=== PATIENT | female | born 1990 | race African-American/Black ===

== ENCOUNTER → 2017-05-14 | Outpatient (CLI) | payer BC ==
[~2017-05-14] MED LIST: FRRS300 PO; PRENTAB26 PO
== END | disposition home or self-care (01) ==
LOC: C.PAPS 16:40
PROVIDERS: ATTEND Obstetrics & Gynecology
DX: O99.89 Other specified diseases and conditions complicating pregnancy, childbirth and the puerperium (principal); Z3A.00 Weeks of gestation of pregnancy not specified

== ENCOUNTER → 2017-05-14 | Outpatient (CLI) | payer BC ==
[2017-05-14 13:40] LABS: URINE APPEARANCE CLEAR (CLEAR); URINE BILIRUBIN NEG (NEG); URINE COLOR YELLOW; URINE EPITHELIAL CELL AUTO >30 /lpf (0-5); URINE NITRITE NEG (NEG); URINE PH >= 9.0 (4.5-7.5); URINE SPECIFIC GRAVITY 1.025 (1.000-1.030); UROBILINOGEN NEG (NEG)
[2017-05-14 13:43] LABS: MANUAL MICROSCOPIC REQUIRED? NO; REVIEW REQ? NO
[2017-05-14 15:06] LABS: BASO % 0.1 %; BASO ABS # 0.01 K/uL (0-0.2); COMPLETE YES; EOS % 1.4 %; HEMATOCRIT 36.3 % (37-47); IG% 0.2 %; LYMPH ABS # 2.01 K/uL (1.2-3.4); MEAN CELL VOLUME 81.6 fL (80-100); MEAN CORPUSCULAR HEMOGLOBIN 26.5 pg (25-34); MEAN CORPUSCULAR HGB CONC 32.5 g/dl (32-36); MEAN PLATELET VOLUME 10.3 fL (7.4-10.4); MONO % 6.5 %; NEUT % 69.8 %; PLATELET COUNT 206 K/uL (130-400); RED BLOOD COUNT 4.45 M/uL (4.2-5.4); WHITE BLOOD COUNT 9.12 K/uL (4.8-10.8)
[2017-05-17 00:09] LABS: CHLAMYDIA TRACH RNA*** NOT DETECTED (NOT DETECTED); GC (NEIS GONORRHOEAE)RNA** NOT DETECTED (NOT DETECTED)
== END | disposition home or self-care (01) ==
LOC: C.LAB1850 11:38
PROVIDERS: ATTEND Obstetrics & Gynecology
DX: Z34.81 Encounter for supervision of other normal pregnancy, first trimester (principal)

== ENCOUNTER → 2017-09-19 | Outpatient (CLI) | payer OTHER ==
[2017-09-19 13:06] LABS: HEMATOCRIT 32.7 % (37-47)
== END | disposition home or self-care (01) ==
LOC: C.LAB1850 11:00
PROVIDERS: ATTEND Obstetrics & Gynecology
DX: Z34.82 Encounter for supervision of other normal pregnancy, second trimester (principal)

== ENCOUNTER → 2017-11-13 | Outpatient (CLI) | payer OTHER | END | disposition home or self-care (01) | LOC: C.LABSPEC 15:25 | PROVIDERS: ATTEND Obstetrics & Gynecology | DX: O24.414 Gestational diabetes mellitus in pregnancy, insulin controlled (principal); Z3A.00 Weeks of gestation of pregnancy not specified ==

== ENCOUNTER → 2018-01-21 | Outpatient (CLI) | payer OTHER ==
[~2018-01-21] MED LIST changes: +MTR600X PO; +OXYC-57 PO
--- NOTE | 2018-01-22 07:30 | MAMMOGRAPHY REPORT ---
ULTRASOUND OF RIGHT BREAST: 01/21/2018 CLINICAL HISTORY: 27-year-old woman presents with a one-month history of a palpable lump in the 6:00 right breast. She is currently lactating and has a 1-month-old baby. She reports no change in size si nce she first noticed the lump. No blood-tinged milk. No skin changes overlying the palpable lump. No family history of breast cancer. COMPARISON: No prior exams were available for comparison. FINDINGS: The patient pointed out her lump in the 6:00 right breast, 2 cm from the nipple. There is a discrete firm nodular lump noted on physical exam that measures approximately 8 mm targeted ultraso und performed directly over this lump demonstrates tissue with evidence of lactational change. No hopkins spicious solid or cystic mass identified. No drainable fluid collection or focal skin thickening. IMPRESSION: ACR-BI-RADS CATEGORY 3: PROBABLY BENIGN There is no targeted sonographic evidence of malignancy or other suspicious abnormality to explain th e palpable lump in the 6:00 right breast initially identified by the patient. Continued clinical mon itoring and clinical follow-up is recommended as biopsy of a clinically suspicious mass should not be precluded by negative imaging. Although this could simply represent lactational change, would also recommend a short interval follow-up targeted ultrasound in the 6:00 right breast in 4-6 weeks to ens ure stability. These results and recommended as were discussed with the patient at the time of the exam. She was pr ovided the phone number to call in and schedule her follow-up appointment. Nany Vilchis M.D. ay/:01/21/2018 14:56:24 Director Of Social Services: RT Kimani(Orin)(M), [facility] letter sent: Follow Up Recommended 3 BI-RADS Code: ACR-BI-RADS Category 3: Probably Benign
== END | disposition home or self-care (01) ==
LOC: C.MAMM 13:22
PROVIDERS: ATTEND Obstetrics & Gynecology
DX: N63.10 Unspecified lump in the right breast, unspecified quadrant (principal)

== ENCOUNTER → 2018-01-21 | Outpatient (CLI) | payer OTHER ==
--- NOTE | 2018-01-21 14:27 | DIAGNOSTIC IMAGING REPORT ---
CHEST 2 VIEWS ROUTINE HISTORY: POSITIVE QUANFERON GOLD COMPARISON: None. FINDINGS: The lungs are clear. Cardiac silhouette is normal in size. No pleural effusions. No pneumothorax. IMPRESSION: No acute process. Electronically signed by: iFlippo Caceres M.D. 01/21/2018 2:26 PM Dictated Date/Time: 01/21/2018 2:25 PM
== END | disposition home or self-care (01) ==
LOC: C.RAD1850 13:52
PROVIDERS: ATTEND Family Medicine
DX: R76.12 Nonspecific reaction to cell mediated immunity measurement of gamma interferon antigen response without active tuberculosis (principal)